=== PATIENT | male | born 1985 | race Caucasian/White ===

== ENCOUNTER → 2022-07-12 08:17 | Outpatient (CLI) | payer OTHER, SELFPAY ==
--- NOTE | ~2022-07-12 | US_ITS ---
Limited Abdominal Sonogram: Real-time sonographic imaging of the right upper quadrant was performed. Clinical History: Abnormal LFTs Findings: The liver appears mildly echogenic, with no evidence of mass lesion or bile duct dilatatio n. Main portal vein demonstrates normal direction of flow. The gallbladder is well distended, and ty ears normal with no evidence of gallstone or wall thickening. The common bile duct measures 4 mm. Th e visualized aorta and IVC are unremarkable. Pancreas is largely obscured by bowel gas shadowing. Rig ht kidney measures 12.0 cm in length, without hydronephrosis. Impression: Probable diffuse fatty infiltration of the liver. Reviewed, dictated and finalized at location M. RER Impression: Probable diffuse fatty infiltration of the liver.
== END ==
PROVIDERS: PCP Nurse Practitioner Family; Visit Provider Nurse Practitioner Family
DX: R74.8 Abnormal levels of other serum enzymes (principal); K76.0 Fatty (change of) liver, not elsewhere classified
CPT/HCPCS: 76705